=== PATIENT | female | born 2000 | race Caucasian/White ===

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

== ENCOUNTER → 2020-11-15 | Outpatient (CLI) | payer OTHER ==
--- NOTE | 2020-11-16 08:10 | XR ---
EXAMINATION TYPE: XR knee complete RT DATE OF EXAM: 11/15/2020 CLINICAL HISTORY: Pain after recent injury. TECHNIQUE: Three views of the right knee are obtained. COMPARISON: None. FINDINGS: There is no acute fracture/dislocation evident in right knee. The tri-compartment joint s paces appear within normal limits. The overlying soft tissue appears unremarkable. IMPRESSION: As above.
== END | disposition home or self-care (01) ==
LOC: RADXRYALE 16:34
PROVIDERS: ATTEND Internal Medicine
DX: S89.91XA Unspecified injury of right lower leg, initial encounter (principal); M25.561 Pain in right knee

== ENCOUNTER 2023-08-03 15:58 | Emergency (ER) | payer BC, OTHER ==
[2023-08-03 16:30] VITALS: BP 134/84; PULSE 60; RESP 18; TEMP 98.4
--- NOTE | 2023-08-03 17:01 | XR ---
EXAMINATION TYPE: XR hand complete LT, XR wrist complete BILATERAL DATE OF EXAM: 08/03/2023 4:45 PM CLINICAL INDICATION:Female, 23 years old with history of pain; [facility] COMPARISON: None TECHNIQUE: XR hand complete LT, XR wrist complete BILATERAL Frontal, lateral and oblique views were o btained. Bilateral wrists were evaluated in frontal lateral, oblique and navicular views. FINDINGS: Normal alignment of the visualized joints. No acute osseous pathology is identified. No e vidence of soft tissue swelling. No significant degeneration the scaphoid IMPRESSION: No evidence of fracture of the distal radius bilaterally. No evidence of fracture of the left hand.
--- NOTE | 2023-08-03 17:25 | ED ---
General Adult HPI - General Chief complaint: Extremity Injury, Upper Stated complaint: Too. wrist injury Time Seen by Provider: 08/03/23 16:58 Source: patient, RN notes reviewed Mode of arrival: ambulatory Limitations: no limitations - History of Present Illness Initial comments: Patient is a 23-year-old female presenting to the emergency department with concern for bilateral wrist injury. Patient had a fall around 2 weeks ago. Patient did see an [id number] orthopedic doctor who was told she did have some fractures. Patient is still having symptoms and came in for second opinion. Discomfort is at bilateral wrists, left more than right as well as left proximal thumb. No other area of injury or concern. Patient has splints in place. - Related Data Home Medications Medication Instructions Recorded Confirmed ARIPiprazole [Abilify] 15 mg PO DAILY 10/09/17 10/09/17 FLUoxetine HCL [PROzac] 40 mg PO DAILY 10/09/17 10/09/17 hydrOXYzine pamoate [Vistaril] 25 mg PO BID PRN 10/09/17 10/09/17 Allergies Allergy/AdvReac Type Severity Reaction Status Date / Time No Known Allergies Allergy Verified 08/03/23 16:27 Review of Systems ROS Statement: Those systems with pertinent positive or pertinent negative responses have been documented in the HPI. ROS Other: All systems not noted in ROS Statement are negative. Constitutional: Denies: fever Eyes: Denies: eye pain Cardiovascular: Denies: chest pain Musculoskeletal: Reports: as per HPI Neurological: Denies: headache, weakness Past Medical History Past Medical History: No Reported History Additional Past Medical History / Comment(s): heart murmur History of Any Multi-Drug Resistant Organisms: None Reported Additional Past Surgical History / Comment(s): mood disorder Past Psychological History: ADD/ADHD, Anxiety, Depression Past Alcohol Use History: None Reported Past Drug Use History: None Reported General Exam Limitations: no limitations General appearance: alert, in no apparent distress Head exam: Present: atraumatic Eye exam: Present: normal appearance Respiratory exam: Present: normal lung sounds bilaterally Cardiovascular Exam: Present: regular rate, normal rhythm Extremities exam: Present: other (Mild swelling left wrist. Mild tenderness left wrist and proximal thumb/thenar eminence. Distal extremities are neurovascularly intact) Neurological exam: Present: alert. Absent: motor sensory deficit Psychiatric exam: Present: normal affect, normal mood Skin exam: Present: normal color Course Vital Signs 08/03/23 16:23 Temperature 98.4 F Pulse Rate 60 Respiratory 18 Rate Blood Pressure 134/84 O2 Sat by Pulse 100 Oximetry Medical Decision Making - Medical Decision Making Was pt. sent in by a medical professional or institution (, [facility], [facility] [facility], urgent care, hospital, or prison...) When possible be specific @ -No Did you speak to anyone other than the patient for history (EMS, parent, family, police, friend...)? What history was obtained from this source @ -No Did you review nursing and triage notes (agree or disagree)? Why? @ -I reviewed and agree with nursing and triage notes Were old charts reviewed (outside hosp., previous admission, EMS record, old EKG, old radiological studies, urgent care reports/EKG's, prison records)? Report findings @ -No old charts were reviewed Differential Diagnosis (chest pain, altered mental status, abdominal pain women, abdominal pain men, vaginal bleeding, weakness, fever, dyspnea, syncope, headache, dizziness, GI bleed, back pain, seizure, CVA, palpatations, mental health, musculoskeletal)? @ -Differential Musculoskeletal Muscular strain, contusion, ligament sprain, fracture, arthritis, septic arthritis, bursitis, cellulitis, muscle spasm, nerve compression, DVT, arterial occlusion, herpes zoster, electrolyte abnormality, tumor.... This is not meant to be in all inclusive list EKG interpreted by me (3pts min.). @ -As above X-rays interpreted by me (1pt min.). @ -X-ray bilateral wrist does not reveal acute fracture. Left hand x-ray does not reveal acute fracture CT interpreted by me (1pt min.). @ -None done U/S interpreted by me (1pt. min.). @ -None done What testing was considered but not performed or refused? (CT, X-rays, U/S, labs)? Why? @ -None What meds were considered but not given or refused? Why? @ -None Did you discuss the management of the patient with other professionals (professionals i.e. [facility], [employer], lab, RT, psych nurse, public health social worker, booth usher, teacher, command and control officer, disease case manager rn)? Give summary @ -No Was smoking cessation discussed for >3mins.? @ -No Was critical care preformed (if so, how long)? @ -No Were there social determinants of health that impacted care today? How? (Homelessness, low income, unemployed, alcoholism, drug addiction, transportation, low edu. Level, literacy, decrease access to med. care, detention, rehab)? @ -No Was there de-escalation of care discussed even if they declined (Discuss DNR or withdrawal of care, Hospice)? DNR status @ -No What co-morbidities impacted this encounter? (DM, HTN, Smoking, COPD, CAD, Cancer, CVA, ARF, Chemo, Hep., AIDS, mental health diagnosis, sleep apnea, morbid obesity)? @ -None Was patient admitted / discharged? Hospital course, mention meds given and route, prescriptions, significant lab abnormalities, going to OR and other pertinent info. @ -Patient updated on results. Patient recommended to continue wearing braces if she has continued symptoms. Patient recommended orthopedic follow-up and will be provided number. Patient refuses pain medication. Undiagnosed new problem with uncertain prognosis? @ -No Drug Therapy requiring intensive monitoring for toxicity (Heparin, Nitro, Insulin, Cardizem)? @ -No Were any procedures done? @ -No Diagnosis/symptom? @ -Bilateral wrist sprain Acute, or Chronic, or Acute on Chronic? @ -Acute Uncomplicated (without systemic symptoms) or Complicated (systemic symptoms)? @ -Default Side effects of treatment? @ -No Exacerbation, Progression, or Severe Exacerbation? @ -No Poses a threat to life or bodily function? How? (Chest pain, [place], [place], pneumonia, PE, COPD, DKA, ARF, appy, cholecystitis, CVA, Diverticulitis, Homicidal, Suicidal, threat to staff... and all critical care pts) @ -No Disposition Clinical Impression: Sprain of wrist Disposition: HOME SELF-CARE Condition: Stable Instructions (If sedation given, give patient instructions): Wrist Injury (ED) Additional Instructions: Please do follow-up with orthopedics in the next couple of days for recheck. Ice to affected area. Use braces as needed, especially left. Return for increased pain, swelling, hand problems, worsening symptoms or other concerns. Continue Motrin as needed. Is patient prescribed a controlled substance at d/c from ED?: No Referrals: Farideh Ellsworth MD [Primary Care Provider] - 1-2 days Memo Brock MD [STAFF PHYSICIAN] - 1-2 days Time of Disposition: 17:24
== END 2023-08-03 17:50 | disposition home or self-care (01) ==
LOC: EC 15:58
DX: S63.502A Unspecified sprain of left wrist, initial encounter (principal); S63.501A Unspecified sprain of right wrist, initial encounter; W19.XXXA Unspecified fall, initial encounter
CPT/HCPCS: 99283